=== PATIENT | male | born 1980 | race African-American/Black ===

== ENCOUNTER 2018-06-12 08:58 | Outpatient (CLI) | payer OTHER ==
--- NOTE | 2018-06-12 11:58 | MRI ---
MRI OF THE LEFT WRIST WITHOUT CONTRAST: INDICATION: Left wrist pain; preop evaluation for wrist surgery. FINDINGS: There is an ununited longitudinally oriented fracture involving the mid lunate extending in the dorsa l palmar plane best seen on image 14 of series 12 and image 9 of series 10 There is some residual fa tty marrow signal intensity with some edema in the remaining aspects of the lunate without overt dodson ges to suggest osteonecrosis. The visualized aspects of the intrinsic ligaments including the lunotr iquetral and scapholunate ligament appear intact. There is a joint effusion. The visualized extrins ic ligaments appear intact. Carpal tunnel and its contents appear within normal limits. The FCR ten don is intact. The FCU tendons are intact. The extensor tendons appear within normal limits. There is a nondisplaced fracture involving the hamate. IMPRESSION: 1. Ununited fracture involving the lunate. 2. Nondisplaced fracture involving the hook of the hamate. 3. Wrist joint effusion. POS: CET
--- NOTE | 2018-06-12 14:07 | MRI ---
MRI OF THE RIGHT WRIST WITHOUT CONTRAST: INDICATION: History of paraplegia with right wrist pain. TECHNIQUE: Multiplanar, multisequence MR images were obtained of the right wrist. FINDINGS: There is mild tendinosis involving the ECU tendon as it traverses the ulnar styloid. Carpal tunnel's contents appear within normal limits. Scapholunate and triquetral ligaments appear within normal li mits. The TFC is intact. There is mild subcutaneous edema seen on the lateral aspect of the left di stal forearm. The FCR and FCA tendons appear intact. The visualized extrinsic ligaments appear inta ct. No joint effusion is evident. IMPRESSION: Mild extensor carpi ulnaris tendonosis with a mild amount of subcutaneous edema overlying the left di stal aspect of the forearm. POS: CET
== END 2018-06-12 08:59 | disposition home or self-care (01) ==
LOC: SCSMRI 08:58
PROVIDERS: ATTEND Orthopaedic Surgery Hand Surgery
DX: M87.88 Other osteonecrosis, other site (principal); M77.8 Other enthesopathies, not elsewhere classified; S62.122 Displaced fracture of lunate [semilunar], left wrist; S62.145A Nondisplaced fracture of body of hamate [unciform] bone, left wrist, initial encounter for closed fracture; M25.432 Effusion, left wrist